=== PATIENT | female | born 1930 | race Caucasian/White ===

== ENCOUNTER → 2019-03-07 | Outpatient (CLI) | payer MEDICARE ==
--- NOTE | 2019-03-07 15:47 | MRI ---
EXAM DESCRIPTION: Brain w/wo Contrast: Magnetic Resonance Imaging. CLINICAL HISTORY: 88 years Female VERTIGO COMPARISON: None. TECHNIQUE: Multiplanar, high-field MRI, multiple conventional sequences, without and with gadolinium IV contrast. Smaller [id number] images of the brain stem without and with gadolinium IV contrast. No adverse reactions. Multiple axial diffusion sequences. FINDINGS: No mass effect in the brainstem. No abnormal contrast enhancement, hemorrhage, or diffusion restriction. Normal contrast enhancement with no mass effect in the cerebellopontine angles. Normal FLAIR and T2-weighted signal in the periventricular white matter and subcortical white matter of the cerebral hemispheres. . No hemorrhage, no edema, no diffusion restriction, normal contrast enhancement. Normal signal bilateral basal ganglia. No hemorrhage, no cerebral edema, no diffusion restriction. Normal contrast enhancement. Normal signal in the bilateral cerebellar hemispheres. No hemorrhage, no cerebral edema, no mass-effect. Normal contrast enhancement. Concordance of the diffusion and non-diffusion sequences with no evidence of acute or subacute infarction. Cortical sulci, ventricles, and other CSF spaces, and the subdural spaces are normally configured for the patient's age. No effacement or displacement. No midline shift. No extra-axial hemorrhage. Normal contrast enhancement. Normal flow signal void in the major vessels of the sitka Mc, and the venous sinuses. Right posterior communicating artery versus persistent embryonal right trigeminal artery, a normal variant. IACs are symmetric bilaterally. Diffuse fluid signal in the right mastoid air cells. Pituitary gland occupies approximately half of the sella. Normal contrast enhancement. Base of the cerebellar tonsils is at the level of the foramen magnum. Unremarkable paranasal sinuses. The bony calvarium is intact. IMPRESSION: 1. Normal MRI scan of the brain without and with gadolinium IV contrast. Normal MRI scan of the brain stem without and with gadolinium IV contrast. 2. Moderate involvement of the mastoid air cells with inflammatory process could be contributing to the clinical findings. 3. Normal noncontrast MRI diffusion study with no evidence of acute or subacute significant ischemia or infarction. Electronically signed by: Tacos Sandoval MD 03/07/2019 3:46 PM CDT
== END ==
LOC: MRI 10:47
PROVIDERS: ATTEND General Practice
DX: H91.93 Unspecified hearing loss, bilateral (principal); H81.41 Vertigo of central origin, right ear